=== PATIENT | female | born 1980 | race Caucasian/White ===

== ENCOUNTER → 2018-08-18 | Outpatient (CLI) | payer BC ==
[~2018-08-18] MED LIST: ADVAIR HFA115 MCG/21 INH; AMBIEN5 MG PO; APAP500 PO; CHLORTHALIDONE50 MG PO; ERYTHROMYCIN E3.5 G1 OPHTHALMIC; IBUPROFEN 600600 M1 PO; LOPRESSOR50 PO; MACROBID 100 M100 M2 PO; MINASTRIN 24 F1 EACH PO; PEPCID20 MG PO; PHENAZOPYRIDIN200 M2 PO; POTASSIUM20 PO; PREDNISONE 10 M10 M1 PO; PROAIR RESPICL90 MCG IH; SINGULAIR 10 MG10 M1 PO; XOPENEX 0.63 MG/3 M1 INH
== END ==
LOC: RAD 16:54
DX: R06.02 Shortness of breath (principal)

== ENCOUNTER 2019-02-24 13:33 | Inpatient (IN) | payer BC ==
[~2019-02-24] VITALS: Ht 154.9 cm; Wt 90.6 kg
[2019-02-24 13:33] VITALS: BP 128/63
[2019-02-24] MEDS ORDERED: ALDACTONE50 MG PO (13:56)
[2019-02-24] MEDS ORDERED: CYMBALTA30 MG PO (14:14)
[2019-02-24 14:23] LABS: ABSOLUTE NEUTROPHILS 6.6 thou/uL (1.4-8.2); BASOPHILS 0.5 % (0.0-2.0); EOSINOPHILS 0.6 % (0.0-3.0); HEMATOCRIT 42.5 % (37.0-47.0); HEMOGLOBIN 14.9 gm/dL (12.0-15.0); LYMPHOCYTES 19.7 % (24.0-44.0); MCH 30.4 pg (26.0-34.0); MCHC 35.1 g/dL (28.0-37.0); MCV 86.7 fL (80.0-100.0); MONOCYTES 5.2 % (1.0-8.0); PLATELET COUNT 247 thou/uL (150-400); RDW 13.1 % (10.5-14.5); WBC 8.9 thou/uL (4.0-11.0)
[2019-02-24 14:38] LABS: DIRECT BILIRUBIN 0.1 mg/dL (<0.1-0.3); TOTAL BILIRUBIN 0.6 mg/dL (<0.1-1.0); TOTAL PROTEIN 6.8 g/dL (6.4-8.2)
[2019-02-24 14:43] LABS: ANION GAP 11 mmol/L (7-16); BUN 12 mg/dL (7-18); CALCIUM 9.2 mg/dL (8.5-10.1); CHLORIDE 100 mmol/L (98-107); CO2 26 mmol/L (21-32); CREATININE 0.7 mg/dL (0.6-1.0); GLUCOSE 112 mg/dL (74-106); SODIUM 137 mmol/L (136-145); TROPONIN-I <0.06 ng/mL (<0.06)
[2019-02-24 14:45] LABS: POTASSIUM 2.8 mmol/L (3.5-5.1)
[2019-02-24 16:45] LABS: AMP/METHAMP Negative (Negative); BARBITURATES Negative (Negative); BENZODIAZEPINES Negative (Negative); COCAINE Negative (Negative); METHADONE Negative (Negative); OPIATES Negative (Negative); PCP Negative (Negative)
[2019-02-24 16:58] LABS: URINE BILIRUBIN NEGATIVE (Negative); URINE BLOOD NEGATIVE (Negative); URINE CLARITY CLEAR; URINE COLOR YELLOW; URINE GLUCOSE-RANDOM* NEGATIVE (Negative); URINE KETONES 1+ (Negative); URINE LEUKOCYTES-REFLEX NEGATIVE (Negative); URINE NITRITE-REFLEX NEGATIVE (Negative); URINE PROTEIN (DIPSTICK) NEGATIVE (Negative); URINE SPECIFIC GRAVITY <= 1.005 (1.005-1.035); URINE UROBILINOGEN 0.2 E.U./dl (0.2-1.0)
[2019-02-24 17:34] VITALS: BP 125/72
[2019-02-24 18:04] VITALS: BP 125/72
[2019-02-24 18:44] VITALS: BP 124/77
[2019-02-24 21:00] VITALS: BP 120/83
[2019-02-25 01:42] LABS: CALCIUM 8.5 mg/dL (8.5-10.1); CREATININE 0.8 mg/dL (0.6-1.0); POTASSIUM 3.7 mmol/L (3.5-5.1)
[2019-02-25 01:43] LABS: MAGNESIUM 1.9 mg/dL (1.8-2.4)
[2019-02-25 03:20] VITALS: BP 99/61
--- NOTE | 2019-02-25 05:58 | NUR ---
PT ARRIVED TO UNIT JUST PRIOR TO SHIFT CHANGE; ADMISSION ASSESSMENT AND POC COMPLETED. PT REPORTS EPIGASTRIC PAIN ABOUT A 2 OF 10, OCCASIONALLY RADIATING TO BACK; PAIN HAS NOT BEEN PROLONGED OVERNIGHT. SHE ALSO REPORTS INTERMITTENT CRAMPING/TINGLING IN ARMS AND LEGS, STATES THIS HAS IMPROVED SINCE RECEIVING IV FLUIDS AND POTASSIUM. DENIES NAUSEA, RECEIVED ORDER FOR CLEAR LIQUIDS WHICH PT HAS TOLERATED WELL OVERNIGHT. PT DENIES SOB AT THIS TIME, BUT STATES SHE HAS ASTHMA, ANXIETY, AND IS EASILY PRONE TO PNEUMONIA; REQUESTED TO HAVE ALBUTEROL TREATMENTS CHANGED TO LEVABUTEROL THE ALBUTEROL RAISES HER HEARTRATE; TREATMENTS ARE NOW PRN WELL. LUNG SOUNDS ARE CLEAR IN ALL QUADRANTS. PT REPORTS RIGHT EAR INFECTION AND THAT SHE HAS HAD TWO DAYS WORTH OF PO DOXY; OBTAINED ORDER FOR IV DOXY TO REPLACE THIS; PT DOES C/O LARGE AMOUNTS OF NASAL AND EAR DRAINAGE OVERNIGHT. UP AD MERA IN ROOM, STEADY ON FEET, CALLS APPROPRIATELY FOR ASSISTANCE. NO OTHER CONCERNS, WILL CONTINUE TO MONITOR.
[2019-02-25 06:03] LABS: HEMOGLOBIN 14.3 gm/dL (12.0-15.0); MCH 30.2 pg (26.0-34.0); MCHC 34.1 g/dL (28.0-37.0); MCV 88.7 fL (80.0-100.0); RBC 4.74 mil/uL (4.20-5.00); RDW 13.6 % (10.5-14.5); WBC 6.4 thou/uL (4.0-11.0)
[2019-02-25 07:51] VITALS: BP 104/69
--- NOTE | 2019-02-25 09:52 | EKG ---
[address] [place] [address] ELECTROCARDIOGRAM REPORT Name: BUCKKATHLEEN ESTES Room #: 431-P ADM IN M.R.#: [id number] ������������������ Admission: 02/24/19 ������������������ Attend Phys: Ranjith Santana MD Discharge: ������������������ Date of : 76 Report #: [id number] ����������������������������������������������������������������� [id number] THIS REPORT FOR: //name// 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1980 Requested By: Kade Carter Order Number: [id number] MD: Jasper Higginbotham Measurements Intervals [place] Rate: 69 P: 32 OR: 151 QRS: 24 QRSD: 104 T: 22 QT: 413 QTc: 443 Interpretive Statements Sinus rhythm Normal tracing Compared to ECG 05/26/2015 16:17:27 No significant changes Electronically Signed On 02-25-2019 9:52:27 CDT by Jasper Higginbotham [email or web address] ��������������������������������������������� <ELECTRONICALLY SIGNED> ���������������������������������������� By: Jasper Higginbotham MD, [facility] ��������������������������������������������� 02/25/19 0952 D: [id number] Jasper Higginbotham MD, FACC /EPI
[2019-02-25] MEDS ORDERED: PROTONIX40 M1 PO (12:41)
[2019-02-25] MEDS ORDERED: KLOR-CON 1010 MEQ PO (12:41)
[2019-02-25] MEDS ORDERED: ZOFRAN ODT4 MG DISSOLVE (12:41)
[2019-02-25 12:54] VITALS: BP 104/69
--- NOTE | 2019-02-25 15:05 | NUR ---
Assumed pt care at 7am.Pt reported feeling better today and would like to have regular diet before going home today.Assessment completed.vss.Meds given as ordered and well tolerated.Dr Santana her and dc order noted.Dc summary compiled and reviewed with pt. Rx and dc summary given to pt and saline lock dc'd. At 1500,pt dc home in accompanied by sap pi architect.
== END 2019-02-25 14:50 | disposition home or self-care (01) | DRG 384 ==
LOC: ER 13:33 → EROBS 17:27 → 4E 18:18
PROVIDERS: Nurse Practitioner; ADMIT Internal Medicine
DX: K27.9 Peptic ulcer, site unspecified, unspecified as acute or chronic, without hemorrhage or perforation (principal); G93.49 Other encephalopathy; E87.6 Hypokalemia; K29.70 Gastritis, unspecified, without bleeding; K29.80 Duodenitis without bleeding; I10 Essential (primary) hypertension; E66.9 Obesity, unspecified; J45.909 Unspecified asthma, uncomplicated; Z79.2 Long term (current) use of antibiotics; Z79.899 Other long term (current) drug therapy; Z88.0 Allergy status to penicillin; Z68.37 Body mass index [BMI] 37.0-37.9, adult
CPT/HCPCS: 10084

== ENCOUNTER 2019-05-08 15:28 | Emergency (ER) | payer BC ==
[~2019-05-08] VITALS: Ht 152.4 cm; Wt 88.5 kg
[~2019-05-08 15:28] MED LIST changes: +ALDACTONE50 MG PO; +CYMBALTA30 MG PO; +KLOR-CON 1010 MEQ PO; +PROTONIX40 M1 PO; +ZOFRAN ODT4 MG DISSOLVE
[2019-05-08] MEDS ORDERED: VITAMIN D3400 UNIT PO (15:34)
[2019-05-08 16:24] LABS: URINE BILIRUBIN NEGATIVE (Negative); URINE BLOOD NEGATIVE (Negative); URINE CLARITY CLEAR; URINE COLOR YELLOW; URINE GLUCOSE-RANDOM* NEGATIVE (Negative); URINE KETONES NEGATIVE (Negative); URINE LEUKOCYTES-REFLEX NEGATIVE (Negative); URINE NITRITE-REFLEX NEGATIVE (Negative); URINE PROTEIN (DIPSTICK) NEGATIVE (Negative); URINE UROBILINOGEN 0.2 E.U./dl (0.2-1.0)
[2019-05-08 16:29] LABS: ABSOLUTE NEUTROPHILS 5.2 thou/uL (1.4-8.2); EOSINOPHILS 0.7 % (0.0-3.0); HEMATOCRIT 43.7 % (37.0-47.0); LYMPHOCYTES 25.9 % (24.0-44.0); MCH 30.2 pg (26.0-34.0); MCHC 34.2 g/dL (28.0-37.0); MCV 88.3 fL (80.0-100.0); MONOCYTES 6.4 % (1.0-8.0); PLATELET COUNT 304 thou/uL (150-400); RBC 4.95 mil/uL (4.20-5.00); RDW 12.9 % (10.5-14.5)
[2019-05-08 16:41] LABS: ANION GAP 11 mmol/L (7-16); BUN 11 mg/dL (7-18); CALCIUM 9.4 mg/dL (8.5-10.1); CHLORIDE 99 mmol/L (98-107); CO2 27 mmol/L (21-32); CREATININE 0.8 mg/dL (0.6-1.0); GLUCOSE 104 mg/dL (74-106); SODIUM 137 mmol/L (136-145)
[2019-05-08 16:52] LABS: ALBUMIN 4.1 g/dL (3.4-5.0); MAGNESIUM 1.6 mg/dL (1.8-2.4); SGOT 33 U/L (15-37); SGPT 39 U/L (30-65); TOTAL BILIRUBIN 0.4 mg/dL (<0.1-1.0); TOTAL PROTEIN 7.5 g/dL (6.4-8.2); TROPONIN-I <0.06 ng/mL (<0.06)
[2019-05-08 19:36] LABS: CALCIUM 9.2 mg/dL (8.5-10.1); CREATININE 0.8 mg/dL (0.6-1.0); POTASSIUM 3.2 mmol/L (3.5-5.1)
[2019-05-08 19:37] LABS: MAGNESIUM 1.8 mg/dL (1.8-2.4)
[2019-05-08] MEDS ORDERED: MAG-OXIDE400 MG PO (20:38)
[2019-05-08] MEDS ORDERED: ATIVAN0.5 MG PO (20:38)
[2019-05-08 20:42] VITALS: BP 120/71
--- NOTE | 2019-05-09 08:03 | EKG ---
[address] [address] ELECTROCARDIOGRAM REPORT Name: KATHLEEN JANE Room #: DEP [facility]#: [id number] Admission: 05/08/19 Attend Phys: Discharge: 05/08/19 Date of : 76 Report #: [id number] THIS REPORT FOR: //name// 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
== END 2019-05-08 21:04 | disposition home or self-care (01) ==
LOC: ER 15:28
PROVIDERS: Emergency Medicine
DX: E87.6 Hypokalemia (principal); E83.42 Hypomagnesemia; R06.4 Hyperventilation; J45.909 Unspecified asthma, uncomplicated; Z88.0 Allergy status to penicillin

== ENCOUNTER → 2019-12-07 | Outpatient (CLI) | payer BC ==
[~2019-12-07] MED LIST changes: +ATIVAN0.5 MG PO; +MAG-OXIDE400 MG PO; +VITAMIN D3400 UNIT PO
== END ==
LOC: RAD 16:21
DX: R05 Cough (principal); R07.89 Other chest pain